=== PATIENT | male | born 1950 | race Caucasian/White ===

== ENCOUNTER 2018-03-22 12:06 | Emergency (ER) | payer MEDICARE, MEDICAID ==
[~2018-03-22] VITALS: Ht 170.2 cm; Wt 98.8 kg
[2018-03-22] MEDS ORDERED: SODIUM CHLORIDE FLUSH 10ML SYR IVF ONE (13:00)
[2018-03-22 13:21] LABS: BASOPHILS # (AUTO) 0.03 x10^3/uL (0-0.1); BASOPHILS % (AUTO) 1 % (0-1); EOSINOPHILS # (AUTO) 0.23 x10^3/uL (0-0.4); EOSINOPHILS % (AUTO) 4 % (1-7); LYMPHOCYTES # (AUTO) 1.96 x10^3/uL (1-3.4); LYMPHOCYTES % (AUTO) 35 % (22-44); MD NO; MEAN CORPUSCULAR HEMOGLOBIN 32.9 pg (27.5-34.5); MEAN CORPUSCULAR HGB CONC 33.8 g/dL (33.2-36.2); MEAN CORPUSCULAR VOLUME 97.4 fL (81-97); MEAN PLATELET VOLUME 9.4 fL (7.4-10.4); MONOCYTES # (AUTO) 0.41 x10^3/uL (0.2-0.8); MONOCYTES % (AUTO) 7 % (2-9); NEUTROPHILS % (AUTO) 53 % (42-75); PLATELET COUNT 192 x10^3/uL (130-400); RED BLOOD COUNT 4.52 x10^6/uL (4.38-5.82); RED CELL DISTRIBUTION WIDTH 13.7 % (9.4-14.8)
[2018-03-22 13:31] LABS: ALBUMIN 3.6 g/dL (3.4-5.0); ANION GAP 5 mmol/L (5-15); CALCIUM 8.6 mg/dL (8.5-10.1); CHLORIDE 107 mmol/L (98-107)
[2018-03-22 13:34] LABS: ALANINE AMINOTRANSFERASE 22 U/L (12-78); ALKALINE PHOSPHATASE 82 U/L (45-117); BILIRUBIN,TOTAL 0.9 mg/dL (0.2-1.0); CREATININE 0.88 mg/dL (0.7-1.3); TOTAL PROTEIN 8.2 g/dL (6.4-8.2)
[2018-03-22 13:45] LABS: MICROSCOPIC NOT IND
[2018-03-22 13:52] LABS: CULTURE INDICATED? NO
--- NOTE | 2018-03-22 14:25 | NUR ---
Recieved report from LILLY Jang. All questions answered. Pt resting on gurney. Pt is divehi speaking. Pt's daughter translating non-medical questions per pt's request. Placed PIV in pt's left arm for imaging. Imaging transporting pt on gurney at this time.
[2018-03-22] MEDS ORDERED: OMNIPAQUE 350 MG/ML, 100ML BOTTLE ONE (14:39)
[2018-03-22 16:10] VITALS: BP 157/102
--- NOTE | 2018-03-22 16:10 | NUR ---
Patient and Caregiver given discharge instructions and they have confirmed that they understand the instructions. Patient ambulatory with steady gait. Pt and caregiver left with all personal belongings, discharge paperwork, and prescription.
== END 2018-03-22 16:13 | disposition home or self-care (01) ==
LOC: ED 15:08
DX: K40.20 Bilateral inguinal hernia, without obstruction or gangrene, not specified as recurrent (principal); I10 Essential (primary) hypertension; Z87.891 Personal history of nicotine dependence
CPT/HCPCS: 36415; 74177; 80053; 81003; 83690; 85025; 99284; Q9967

== ENCOUNTER 2018-04-09 08:16 | Day surgery (SDC) | payer MEDICARE, MEDICAID ==
[~2018-04-09] VITALS: Ht 167.6 cm; Wt 98.9 kg
[~2018-04-09 08:16] MED LIST: BUPIVACAINE/PF-EPI 0.5% 1:200K ONE; LOSA50TA14 PO
[2018-04-09] MEDS ORDERED: LACTATED RINGERS 1,000 ML IV SCH (08:53)
[2018-04-09 09:02] VITALS: BP 150/101
[2018-04-09] MEDS ORDERED: FENTANYL PF 100 MCG/2ML ONE (10:40)
[2018-04-09] MEDS ORDERED: MIDAZOLAM 1 MG/ML, 2ML ONE (10:40)
[2018-04-09] MEDS ORDERED: CEFAZOLIN 1,000 MG ONE (11:26)
[2018-04-09] MEDS ORDERED: PROPOFOL 10 MG/ML, 20ML ONE (11:26)
[2018-04-09] MEDS ORDERED: DEXAMETHASONE 4 MG/ML, 1ML ONE (11:26)
[2018-04-09] MEDS ORDERED: ONDANSETRON 2MG/ML, 2ML ONE (11:26)
[2018-04-09] MEDS ORDERED: BUPIVACAINE/PF-EPI 0.5% 1:200K INFIL ONE (11:40)
[2018-04-09] MEDS ORDERED: ACETAMINOPHEN 325 MG TABLET PO PRN (12:00)
[2018-04-09] MEDS ORDERED: LABETALOL 5MG/ML, 20ML IV PRN (12:00)
[2018-04-09] MEDS ORDERED: KETOROLAC 30 MG/1 ML IV PRN (12:00)
[2018-04-09] MEDS ORDERED: OXYcodone 5 MG/5 ML ORAL.SOL UDC PO PRN (12:00)
[2018-04-09] MEDS ORDERED: HYDROmorphone 2 MG/ML, 1ML IVPush PRN (12:00)
[2018-04-09] MEDS ORDERED: MEPERIDINE/PF 25MG/0.5ML IVPush PRN (12:00)
[2018-04-09] MEDS ORDERED: hydrALAzine 20 MG/ML, 1ML IV PRN (12:00)
[2018-04-09] MEDS ORDERED: FENTANYL PF 100 MCG/2ML IV PRN (12:00)
[2018-04-09] MEDS ORDERED: PROMETHAZINE 25 MG/ML, 1ML IV PRN (12:00)
[2018-04-09] MEDS ORDERED: DIAZEPAM 5 MG/ML, 2ML IVPush PRN (12:00)
[2018-04-09] MEDS ORDERED: BUPIVACAINE/PF-EPI 0.5% 1:200K ONE (12:52)
[2018-04-09] MEDS ORDERED: ALBUTEROL SULFATE 2.5 MG/3 ML ONE (13:56)
[2018-04-09] MEDS ORDERED: ACETAMINOPHEN 650 MG/20.3 ML UDC ONE (14:05)
[2018-04-09] MEDS ORDERED: OXYcodone 5 MG/5 ML ORAL.SOL UDC ONE (14:05)
[2018-04-09] MEDS: ALBUTEROL SULFATE 2.5 MG/3 ML NPPB PRN ×2 (15:29→16:10)
[2018-04-09] MEDS ORDERED: ALBUTEROL/IPRATROPIUM 2.5MG/0.5MG, 3 ML ONE (16:06)
== END 2018-04-09 17:55 | disposition home or self-care (01) ==
LOC: OUT 08:16
PROVIDERS: ATTEND Surgery
DX: K40.20 Bilateral inguinal hernia, without obstruction or gangrene, not specified as recurrent (principal); D17.6 Benign lipomatous neoplasm of spermatic cord; E78.00 Pure hypercholesterolemia, unspecified; I10 Essential (primary) hypertension; Z72.89 Other problems related to lifestyle; Z87.891 Personal history of nicotine dependence; Z88.0 Allergy status to penicillin; Z88.8 Allergy status to other drugs, medicaments and biological substances
CPT/HCPCS: 49505; 71045; 94640; C1781; J0690; J1100; J2250; J2405; J2704; J3010; J7120; J7613

== ENCOUNTER 2019-04-07 10:06 | Emergency (ER) | payer MEDICAID, MEDICARE ==
[~2019-04-07] VITALS: Ht 165.1 cm; Wt 104.7 kg
[~2019-04-07 10:06] MED LIST changes: -BUPIVACAINE/PF-EPI 0.5% 1:200K ONE
--- NOTE | 2019-04-07 10:26 | NUR ---
PT TO ROOM AT 1026
--- NOTE | 2019-04-07 10:57 | NUR ---
PT RESTING ON PETAR W/ FAMILY AT BEDSIDE. UPDATED ON POC. VS UPDATED. NADN. CALL LIGHT IN REACH. DENIES FURTHER NEEDS AT THIS TIME.
[2019-04-07] MEDS ORDERED: SODIUM CHLORIDE FLUSH 10ML SYR IVF ONE (11:00)
[2019-04-07 11:13] LABS: MICROSCOPIC NOT IND
[2019-04-07 11:18] LABS: CULTURE INDICATED? NO
[2019-04-07 11:28] LABS: BASOPHILS # (AUTO) 0.02 x10^3/uL (0-0.1); BASOPHILS % (AUTO) 1 % (0-1); EOSINOPHILS # (AUTO) 0.25 x10^3/uL (0-0.4); EOSINOPHILS % (AUTO) 5 % (1-7); LYMPHOCYTES # (AUTO) 1.21 x10^3/uL (1-3.4); LYMPHOCYTES % (AUTO) 25 % (22-44); MD NO; MEAN CORPUSCULAR VOLUME 94.1 fL (81-97); MEAN PLATELET VOLUME 9.2 fL (7.4-10.4); MONOCYTES # (AUTO) 0.33 x10^3/uL (0.2-0.8); MONOCYTES % (AUTO) 7 % (2-9); NEUTROPHILS # (AUTO) 3.01 x10^3/uL (1.8-6.8); NEUTROPHILS % (AUTO) 63 % (42-75); PLATELET COUNT 193 x10^3/uL (130-400); RED BLOOD COUNT 4.43 x10^6/uL (4.38-5.82)
[2019-04-07 11:39] LABS: ALANINE AMINOTRANSFERASE 17 U/L (12-78); ALBUMIN 2.9 g/dL (3.4-5.0); ANION GAP 3 mmol/L (5-15); CALCIUM 8.3 mg/dL (8.5-10.1); CHLORIDE 110 mmol/L (98-107); CREATININE 0.96 mg/dL (0.7-1.3)
[2019-04-07 11:41] LABS: ALKALINE PHOSPHATASE 100 U/L (45-117); BILIRUBIN,TOTAL 0.4 mg/dL (0.2-1.0)
--- NOTE | 2019-04-07 11:55 | NUR ---
ALL TESTS RESULTED PT IS UP FOR RECHECK AT THIS TIME.
[2019-04-07 12:17] VITALS: BP 147/98
[2019-04-07 12:18] LABS: HCT (SEDRATE) 41.1 % (39.2-51.8)
--- NOTE | 2019-04-07 13:45 | NUR ---
US IN ROOM.
--- NOTE | 2019-04-07 14:36 | NUR ---
Patient given discharge instructions and they have confirmed that they understand the instructions. Patient ambulatory with steady gait.
== END 2019-04-07 14:37 | disposition home or self-care (01) ==
LOC: ED 12:59
DX: R10.84 Generalized abdominal pain (principal); R30.0 Dysuria; I10 Essential (primary) hypertension; Z87.891 Personal history of nicotine dependence
CPT/HCPCS: 36415; 74176; 80053; 81003; 83605; 83690; 84145; 85025; 85651; 86140; 99284

== ENCOUNTER 2019-05-17 11:13 | Emergency (ER) | payer MEDICAID, MEDICARE ==
[~2019-05-17] VITALS: Ht 165.1 cm; Wt 105.0 kg
--- NOTE | 2019-05-17 11:45 | NUR ---
BIB EMS FROM [facility] FOR DIFFUSE ABD PAIN X1 MONTH BUT NOW HAS RADIATED INTO CHEST CAUSING PRESSURE AND PAIN INTO LEFT ARM. CONNECTED TO ALL MONITORING, HTN NOTED, HX OF SAME TAKING MEDS. AT BEDSIDE. IV IN PLACE ON ARRIVAL. CALL LIGHT WITHIN REACH. AWAITING ORDERS
--- NOTE | 2019-05-17 11:52 | NUR ---
LABS COLLECTED. TAKEN TO RAD
[2019-05-17 12:03] LABS: BASOPHILS # (AUTO) 0.01 x10^3/uL (0-0.1); BASOPHILS % (AUTO) 0 % (0-1); EOSINOPHILS # (AUTO) 0.14 x10^3/uL (0-0.4); EOSINOPHILS % (AUTO) 2 % (1-7); LYMPHOCYTES # (AUTO) 1.08 x10^3/uL (1-3.4); LYMPHOCYTES % (AUTO) 16 % (22-44); MD NO; MEAN CORPUSCULAR HEMOGLOBIN 32.4 pg (27.5-34.5); MEAN CORPUSCULAR HGB CONC 33.7 g/dL (33.2-36.2); MEAN CORPUSCULAR VOLUME 96.2 fL (81-97); MEAN PLATELET VOLUME 8.9 fL (7.4-10.4); MONOCYTES # (AUTO) 0.47 x10^3/uL (0.2-0.8); MONOCYTES % (AUTO) 7 % (2-9); NEUTROPHILS # (AUTO) 5.03 x10^3/uL (1.8-6.8); NEUTROPHILS % (AUTO) 75 % (42-75); PLATELET COUNT 219 x10^3/uL (130-400); RED BLOOD COUNT 4.67 x10^6/uL (4.38-5.82); RED CELL DISTRIBUTION WIDTH 15.7 % (9.4-14.8)
[2019-05-17] MEDS ORDERED: OMEP40CA42 PO (12:10)
[2019-05-17 12:12] LABS: ALBUMIN 3.2 g/dL (3.4-5.0); ANION GAP 6 mmol/L (5-15); CALCIUM 8.1 mg/dL (8.5-10.1); CHLORIDE 109 mmol/L (98-107)
[2019-05-17 12:17] LABS: ALANINE AMINOTRANSFERASE 22 U/L (12-78); ALKALINE PHOSPHATASE 86 U/L (45-117); BILIRUBIN,TOTAL 0.7 mg/dL (0.2-1.0); CREATININE 0.92 mg/dL (0.7-1.3); TROPONIN I < 0.015 ng/mL (0.000-0.045)
--- NOTE | 2019-05-17 12:21 | NUR ---
ALL RESULTS BACK AT THIS TIME, CHART UP FOR RECHECK. DISCUSSED PT HTN WITH MD, NO NEW ORDERS RECEIVED AT THIS TIME
[2019-05-17] MEDS ORDERED: SODIUM CHLORIDE FLUSH 10ML SYR IVF ONE (12:30)
--- NOTE | 2019-05-17 13:01 | NUR ---
PT BEING TAKEN TO CT
[2019-05-17 13:49] VITALS: BP 155/95
--- NOTE | 2019-05-17 14:04 | NUR ---
ALL RESULTS BACK AT THIS TIME, CHART UP FOR RECHECK
--- NOTE | 2019-05-17 14:09 | NUR ---
MD TO BEDSIDE TO UPDATE PT AND FAMILY ON POC
[2019-05-17] MEDS ORDERED: MAALOX/HYOSCYAMINE/LIDOCAINE 45 ML BTL ONE (14:19)
[2019-05-17] MEDS ORDERED: MAALOX/HYOSCYAMINE/LIDOCAINE 45 ML BTL PO ONE (14:30)
[2019-05-17] MEDS ORDERED: OMNIPAQUE 350 MG/ML, 100ML BOTTLE ONE (16:40)
== END 2019-05-17 14:47 | disposition home or self-care (01) ==
LOC: ED 13:30
DX: R10.84 Generalized abdominal pain (principal); I10 Essential (primary) hypertension; Z87.891 Personal history of nicotine dependence
CPT/HCPCS: 36415; 74021; 74177; 80053; 83690; 84484; 85025; 93005; 99285; Q9967

== ENCOUNTER 2019-05-30 20:31 | Emergency (ER) | payer MEDICARE ==
[~2019-05-30] VITALS: Ht 165.1 cm; Wt 104.5 kg
[~2019-05-30 20:31] MED LIST changes: +OMEP40CA42 PO
[2019-05-30 21:21] LABS: BASOPHILS # (AUTO) 0.03 x10^3/uL (0-0.1); BASOPHILS % (AUTO) 1 % (0-1); EOSINOPHILS # (AUTO) 0.19 x10^3/uL (0-0.4); EOSINOPHILS % (AUTO) 4 % (1-7); LYMPHOCYTES # (AUTO) 1.43 x10^3/uL (1-3.4); LYMPHOCYTES % (AUTO) 29 % (22-44); MD NO; MEAN CORPUSCULAR HEMOGLOBIN 32.3 pg (27.5-34.5); MEAN CORPUSCULAR HGB CONC 33.2 g/dL (33.2-36.2); MEAN CORPUSCULAR VOLUME 97.2 fL (81-97); MONOCYTES % (AUTO) 10 % (2-9); NEUTROPHILS # (AUTO) 2.79 x10^3/uL (1.8-6.8); NEUTROPHILS % (AUTO) 57 % (42-75); PLATELET COUNT 207 x10^3/uL (130-400); RED BLOOD COUNT 4.55 x10^6/uL (4.38-5.82); RED CELL DISTRIBUTION WIDTH 15.6 % (9.4-14.8)
[2019-05-30] MEDS ORDERED: SODIUM CHLORIDE FLUSH 10ML SYR IVF ONE (21:30)
[2019-05-30 21:31] LABS: ALANINE AMINOTRANSFERASE 22 U/L (12-78); ALBUMIN 3.2 g/dL (3.4-5.0); ANION GAP 6 mmol/L (5-15); CALCIUM 8.3 mg/dL (8.5-10.1); CHLORIDE 109 mmol/L (98-107); CREATININE 0.99 mg/dL (0.7-1.3)
[2019-05-30 21:36] LABS: ALKALINE PHOSPHATASE 93 U/L (45-117); BILIRUBIN,TOTAL 0.2 mg/dL (0.2-1.0); TOTAL PROTEIN 8.2 g/dL (6.4-8.2)
--- NOTE | 2019-05-30 22:10 | NUR ---
BEDSIDE REPORT RECIEVED FROM LILLY SUNG
--- NOTE | 2019-05-30 22:10 | NUR ---
PT RESTING ON GURNEY. NO ACUTE DISTRESS. PT OFFERED PAIN MEDS BUT PT STATES HE DOES NOT NEED ANY RIGHT. PT GIVEN CALL LIGHT AND TOLD TO LET ME KNOW IF HE WANTS MEDICATIONS FOR PAIN
--- NOTE | 2019-05-30 22:20 | NUR ---
Darlin jackson in [facility] - 05/30/19 at [address] PT [address] AT THIS TIME
--- NOTE | 2019-05-30 23:56 | NUR ---
pt for recheck by erp at this time.
[2019-05-31 00:09] VITALS: BP 176/94
--- NOTE | 2019-05-31 00:10 | NUR ---
PT RESTING COMFORTABLY ON GURNEY. NO REQUESTS AT THIS TIME. PT UPDATED ON POC
[2019-05-31 00:16] LABS: MICROSCOPIC NOT IND
[2019-05-31 00:18] LABS: CULTURE INDICATED? NO
[2019-05-31] MEDS ORDERED: OMNIPAQUE 350 MG/ML, 100ML BOTTLE ONE (03:47)
== END 2019-05-31 00:47 | disposition home or self-care (01) ==
LOC: ED 20:59
DX: R10.84 Generalized abdominal pain (principal); I10 Essential (primary) hypertension
CPT/HCPCS: 36415; 74021; 74177; 80053; 81003; 83690; 83880; 85025; 93005; 99285; Q9967

== ENCOUNTER → 2019-07-13 | Outpatient (CLI) | payer MEDICARE, MEDICAID ==
[~2019-07-13] MED LIST changes: +SINCALIDE (KINEVAC) 5 MCG ONE
== END | disposition home or self-care (01) ==
LOC: RAD 10:51
PROVIDERS: ATTEND Physician Assistant
DX: K21.9 Gastro-esophageal reflux disease without esophagitis (principal); D37.9 Neoplasm of uncertain behavior of digestive organ, unspecified; R93.89 Abnormal findings on diagnostic imaging of other specified body structures
CPT/HCPCS: 76700; 78227; A9537; J2805

== ENCOUNTER → 2019-08-06 | Outpatient (CLI) | payer MEDICARE, MEDICAID ==
[~2019-08-06] MED LIST changes: +ATOR10TA9 PO; -SINCALIDE (KINEVAC) 5 MCG ONE
[2019-08-06 12:22] LABS: ALBUMIN 3.4 g/dL (3.4-5.0); ANION GAP 6 mmol/L (5-15); CALCIUM 8.3 mg/dL (8.5-10.1); CHLORIDE 110 mmol/L (98-107)
[2019-08-06 12:25] LABS: ALANINE AMINOTRANSFERASE 34 U/L (12-78); ALKALINE PHOSPHATASE 81 U/L (45-117); BILIRUBIN,TOTAL 0.7 mg/dL (0.2-1.0); CREATININE 0.99 mg/dL (0.7-1.3); TOTAL PROTEIN 8.2 g/dL (6.4-8.2)
[2019-08-06 12:27] LABS: INTERNATIONAL NORMALIZED RATIO 0.97 (0.93-1.1); PROTHROMBIN TIME 10.3 Seconds (9.6-11.5)
[2019-08-06 13:07] LABS: BASOPHILS # (AUTO) 0.03 x10^3/uL (0-0.1); BASOPHILS % (AUTO) 1 % (0-1); EOSINOPHILS # (AUTO) 0.21 x10^3/uL (0-0.4); EOSINOPHILS % (AUTO) 4 % (1-7); LYMPHOCYTES # (AUTO) 1.73 x10^3/uL (1-3.4); LYMPHOCYTES % (AUTO) 29 % (22-44); MD SCAN; MEAN CORPUSCULAR HEMOGLOBIN 32.7 pg (27.5-34.5); MEAN CORPUSCULAR HGB CONC 33.4 g/dL (33.2-36.2); MEAN CORPUSCULAR VOLUME 97.7 fL (81-97); MEAN PLATELET VOLUME 10.3 fL (7.4-10.4); MONOCYTES # (AUTO) 0.41 x10^3/uL (0.2-0.8); MONOCYTES % (AUTO) 7 % (2-9); NEUTROPHILS # (AUTO) 3.54 x10^3/uL (1.8-6.8); NEUTROPHILS % (AUTO) 60 % (42-75); PLATELET COUNT 156 x10^3/uL (130-400); RED BLOOD COUNT 4.63 x10^6/uL (4.38-5.82); RED CELL DISTRIBUTION WIDTH 14.4 % (9.4-14.8)
== END | disposition home or self-care (01) ==
LOC: STAR 10:13
PROVIDERS: ATTEND Surgery
DX: Z01.818 Encounter for other preprocedural examination (principal); D13.1 Benign neoplasm of stomach; R94.31 Abnormal electrocardiogram [ECG] [EKG]
CPT/HCPCS: 36415; 80053; 83690; 85025; 85610; 93005

== ENCOUNTER 2019-08-12 08:23 | Day surgery (SDC) | payer MEDICARE, MEDICAID ==
[~2019-08-12] VITALS: Ht 165.1 cm; Wt 106.1 kg
[~2019-08-12 08:23] MED LIST changes: +BUPIVACAINE/PF-EPI 0.5% 1:200K ONE
[2019-08-12 08:53] VITALS: BP 150/96
[2019-08-12] MEDS ORDERED: LACTATED RINGERS 1,000 ML IV SCH (08:57)
[2019-08-12] MEDS ORDERED: CHLORHEXIDINE 15 ML UDC MM ONE (09:00)
[2019-08-12] MEDS ORDERED: CHLORHEXIDINE 15 ML UDC ONE (09:15)
[2019-08-12] MEDS ORDERED: ONDANSETRON 2MG/ML, 2ML ONE ×2 (10:17→12:22)
[2019-08-12] MEDS ORDERED: DEXAMETHASONE 4 MG/ML, 1ML ONE (10:17)
[2019-08-12] MEDS ORDERED: ROCURONIUM 10 MG/ML,10ML ONE (10:17)
[2019-08-12] MEDS ORDERED: CEFAZOLIN 1,000 MG ONE (10:17)
[2019-08-12] MEDS ORDERED: SUCCINYLCHOLINE 20 MG/ML, 10ML ONE (10:17)
[2019-08-12] MEDS ORDERED: PROPOFOL 10 MG/ML, 20ML ONE (10:17)
[2019-08-12] MEDS ORDERED: MIDAZOLAM 1 MG/ML, 2ML ONE (10:19)
[2019-08-12] MEDS ORDERED: FENTANYL PF 250 MCG/5ML ONE (10:29)
[2019-08-12] MEDS ORDERED: BUPIVACAINE/PF-EPI 0.5% 1:200K INFIL ONE (10:39)
[2019-08-12] MEDS ORDERED: LABETALOL 5MG/ML, 20ML IV PRN (11:00)
[2019-08-12] MEDS ORDERED: PROMETHAZINE 25 MG/ML, 1ML IV PRN (11:00)
[2019-08-12] MEDS ORDERED: OXYcodone 5 MG/5 ML ORAL.SOL UDC PO PRN (11:00)
[2019-08-12] MEDS ORDERED: ONDANSETRON 2MG/ML, 2ML IVPush PRN (11:00)
[2019-08-12] MEDS ORDERED: MEPERIDINE/PF 25MG/0.5ML IVPush PRN (11:00)
[2019-08-12] MEDS ORDERED: METOCLOPRAMIDE 5 MG/ML, 2ML IV PRN (11:00)
[2019-08-12] MEDS ORDERED: KETOROLAC 30 MG/1 ML IV PRN (11:00)
[2019-08-12] MEDS ORDERED: hydrALAzine 20 MG/ML, 1ML IV PRN (11:00)
[2019-08-12] MEDS ORDERED: ALBUTEROL SULFATE 2.5 MG/3 ML NPPB PRN (11:00)
[2019-08-12] MEDS ORDERED: DIAZEPAM 5 MG/ML, 2ML IV PRN ×2 (11:00)
[2019-08-12] MEDS ORDERED: OXYcodone 5 MG/5 ML ORAL.SOL UDC ONE (11:38)
[2019-08-12] MEDS ORDERED: FENTANYL PF 100 MCG/2ML ONE ×2 (11:38→12:22)
[2019-08-12] MEDS: FENTANYL PF 100 MCG/2ML IV PRN ×3 (11:41→12:25)
[2019-08-12] MEDS ORDERED: KETOROLAC 30 MG/1 ML ONE (11:45)
[2019-08-12] MEDS ORDERED: HYDROmorphone 1 MG/ML, 1ML INJ ONE (11:57)
[2019-08-12] MEDS: HYDROmorphone 1 MG/ML, 1ML INJ IV PRN ×4 (12:00→12:17)
== END 2019-08-12 18:15 | disposition home or self-care (01) ==
LOC: OUT 08:23
PROVIDERS: ATTEND Surgery
DX: K81.1 Chronic cholecystitis (principal); K82.8 Other specified diseases of gallbladder; K76.0 Fatty (change of) liver, not elsewhere classified; K21.9 Gastro-esophageal reflux disease without esophagitis; I10 Essential (primary) hypertension; E78.00 Pure hypercholesterolemia, unspecified; E66.9 Obesity, unspecified; Z68.37 Body mass index [BMI] 37.0-37.9, adult; Z79.899 Other long term (current) drug therapy; Z87.891 Personal history of nicotine dependence; Z88.0 Allergy status to penicillin; Z98.890 Other specified postprocedural states; Z80.9 Family history of malignant neoplasm, unspecified
CPT/HCPCS: 47562; 88304; C1729; J0330; J0690; J1100; J1170; J1885; J2250; J2405; J2704; J3010; J7120

== ENCOUNTER 2019-08-19 09:20 | Day surgery (SDC) | payer MEDICARE, MEDICAID ==
[~2019-08-19] VITALS: Ht 165.1 cm; Wt 104.0 kg
[~2019-08-19 09:20] MED LIST changes: -BUPIVACAINE/PF-EPI 0.5% 1:200K ONE
[2019-08-19] MEDS ORDERED: CHLORHEXIDINE 15 ML UDC MM STA (09:43)
[2019-08-19] MEDS ORDERED: LACTATED RINGERS 1,000 ML IV SCH (09:43)
[2019-08-19 09:45] VITALS: BP 138/95
[2019-08-19] MEDS ORDERED: OXYcodone 5 MG/5 ML ORAL.SOL UDC PO PRN (10:30)
[2019-08-19] MEDS ORDERED: LABETALOL 5MG/ML, 20ML IV PRN (10:30)
[2019-08-19] MEDS ORDERED: PROMETHAZINE 25 MG/ML, 1ML IVPush PRN (10:30)
[2019-08-19] MEDS ORDERED: LORazepam 2 MG/ML, 1ML IVPush PRN (10:30)
[2019-08-19] MEDS ORDERED: FENTANYL PF 100 MCG/2ML IV PRN (10:30)
[2019-08-19] MEDS ORDERED: MEPERIDINE/PF 25MG/0.5ML IVPush PRN (10:30)
[2019-08-19] MEDS ORDERED: ALBUTEROL SULFATE 2.5 MG/3 ML NPPB PRN (10:30)
[2019-08-19] MEDS ORDERED: hydrALAzine 20 MG/ML, 1ML IV PRN (10:30)
[2019-08-19] MEDS ORDERED: PROPOFOL 10 MG/ML, 50ML ONE (11:20)
== END 2019-08-19 13:20 | disposition home or self-care (01) ==
LOC: OUT 09:20
PROVIDERS: ATTEND Internal Medicine Gastroenterology
DX: K31.89 Other diseases of stomach and duodenum (principal); I10 Essential (primary) hypertension; E78.5 Hyperlipidemia, unspecified; K21.9 Gastro-esophageal reflux disease without esophagitis; E11.9 Type 2 diabetes mellitus without complications; Z79.899 Other long term (current) drug therapy; Z87.891 Personal history of nicotine dependence; Z88.0 Allergy status to penicillin; Z90.49 Acquired absence of other specified parts of digestive tract
CPT/HCPCS: 43259; J2704

== ENCOUNTER 2020-11-21 15:22 | Emergency (ER) | payer MEDICARE, MEDICAID ==
[~2020-11-21] VITALS: Ht 165.1 cm; Wt 98.9 kg
[~2020-11-21 15:22] MED LIST changes: -OMEP40CA42 PO; +OMEP40CA8 PO
--- NOTE | 2020-11-21 16:55 | NUR ---
SENIOR [employer] DEVELOPER; PT TO ROOM FROM [facility]
[2020-11-21 17:06] LABS: ALANINE AMINOTRANSFERASE 55 U/L (12-78); ALBUMIN 3.3 g/dL (3.4-5.0); ANION GAP 7 mmol/L (5-15); CALCIUM 8.7 mg/dL (8.5-10.1); CHLORIDE 105 mmol/L (98-107); CREATININE 1.43 mg/dL (0.7-1.3)
[2020-11-21 17:10] LABS: ALKALINE PHOSPHATASE 63 U/L (45-117); BILIRUBIN,TOTAL 0.5 mg/dL (0.2-1.0); TROPONIN I < 0.015 ng/mL (0.000-0.045)
--- NOTE | 2020-11-21 17:13 | NUR ---
FIRST CONTACT: PT POSTIONED TO COMFORT. ATTACHED TO [facility]. DR. WEISS EVALUATED BEDSIDE.
[2020-11-21 17:20] LABS: BASOPHILS % (AUTO) 1 % (0-1); EOSINOPHILS % (AUTO) 3 % (1-7); LYMPHOCYTES % (AUTO) 23 % (22-44); MEAN CORPUSCULAR HEMOGLOBIN 33.2 pg (27.5-34.5); MEAN CORPUSCULAR HGB CONC 34.5 g/dL (33.2-36.2); MEAN PLATELET VOLUME 8.8 fL (7.4-10.4); MONOCYTES % (AUTO) 12 % (2-9); NEUTROPHILS % (AUTO) 62 % (42-75); PLATELET COUNT 400 x10^3/uL (130-400); RED BLOOD COUNT 4.23 x10^6/uL (4.38-5.82); RED CELL DISTRIBUTION WIDTH 14.4 % (9.4-14.8)
--- NOTE | 2020-11-21 18:17 | NUR ---
pt to ct.
[2020-11-21] MEDS ORDERED: OMNIPAQUE 350 MG/ML, 100ML BOTTLE ONE (18:41)
--- NOTE | 2020-11-21 18:52 | NUR ---
REPORT RECEIVED FROM DAVI CARR
[2020-11-21] MEDS ORDERED: KETOROLAC 30 MG/1 ML ONE (19:52)
[2020-11-21] MEDS ORDERED: KETOROLAC 30 MG/1 ML IVPush ONE (20:00)
--- NOTE | 2020-11-21 20:04 | NUR ---
PT AMBULATORY WITH THIS RN, PT O2 SAT ON ROOM AIR MAINATINED AT 93-94%. PT STATES HE FEELS OK TO GO HOME. REQUESTING ADDITIONAL PAIN MEDS. CALLL LIGHT AND PERSONAL BELONGINGS WITHIN REACH. FAMILY AT BEDSIDE.
[2020-11-21 20:52] VITALS: BP 122/82
--- NOTE | 2020-11-21 20:52 | NUR ---
Patient/Caregiver given discharge instructions and they have confirmed that they understand the instructions. Patient ambulatory with steady gait. NAD, all questions answered appropriately, denies additional needs at this time. No personal belongings left in room after discharge.
== END 2020-11-21 20:54 | disposition home or self-care (01) ==
LOC: ED 18:40
DX: U07.1 COVID-19 (principal); R07.89 Other chest pain; I10 Essential (primary) hypertension
CPT/HCPCS: 36415; 71045; 71275; 80053; 84145; 84484; 85025; 85379; 87081; 87880; 93005; 96374; 99285; J1885; Q9967